=== PATIENT | female | born 1950 | race African-American/Black ===

== ENCOUNTER 2017-06-18 23:15 | Emergency (ER) | payer MEDICARE, OTHER ==
[~2017-06-18] VITALS: Ht 157.5 cm; Wt 86.4 kg
[~2017-06-18 23:15] MED LIST: AMLO5TAB66 PO; ARIP15TA2 PO; ASPI-1182 PO; DOCU250C91 PO; FURO40 PO; HYDR-3112 PO; HYDR-4061 PO; KDUR20 PO; LEVO100T14 PO; LOSA50TA37 PO; METO50 PO; NITR.4 SL; TOPI100T37 PO; [UNRECOGNIZED DRUG - CODE]
[2017-06-18 23:38] VITALS: BP 145/83
[2017-06-19] MEDS ORDERED: PERMETHRIN 5% 60 GM CREAM TP ONE
[2017-06-19] MEDS ORDERED: DiphenhydrAMINE HCL 25 MG CAPSULE PO ONE (00:15)
[2017-06-19 00:23] LABS: GLUCOSE,POINT OF CARE 168 MG/DL (70-110)
== END 2017-06-19 00:28 | disposition home or self-care (01) ==
LOC: EMS 23:16
DX: S90.562A Insect bite (nonvenomous), left ankle, initial encounter (principal); S90.561A Insect bite (nonvenomous), right ankle, initial encounter; S50.862A Insect bite (nonvenomous) of left forearm, initial encounter; S50.861A Insect bite (nonvenomous) of right forearm, initial encounter; S00.06XA Insect bite (nonvenomous) of scalp, initial encounter; E11.9 Type 2 diabetes mellitus without complications; E78.00 Pure hypercholesterolemia, unspecified; I10 Essential (primary) hypertension; Z91.041 Radiographic dye allergy status; Z88.0 Allergy status to penicillin; W57.XXXA Bitten or stung by nonvenomous insect and other nonvenomous arthropods, initial encounter; Y93.89 Activity, other specified; Y92.89 Other specified places as the place of occurrence of the external cause; Y99.8 Other external cause status
CPT/HCPCS: 82962; 99283

== ENCOUNTER → 2017-09-26 | Outpatient (CLI) | payer MEDICARE, OTHER ==
[2017-09-26 11:04] LABS: BASOPHILS % (AUTO) 0.5 % (0.0-2.0); EOSINOPHILS % (AUTO) 1.9 % (1.0-6.0); HEMATOCRIT 38.8 % (36-46); HEMOGLOBIN 12.5 g/dL (12.0-16.0); LYMPHOCYTES # (AUTO) 2.4 K/uL (1.0-4.8); LYMPHOCYTES % (AUTO) 26.2 % (22.0-44.0); MEAN CORPUSCULAR HEMOGLOBIN 28.3 pg (26.0-34.0); MEAN CORPUSCULAR HGB CONC 32.2 G/dL (31.0-37.0); MEAN CORPUSCULAR VOLUME 88 fL (80-100); MONOCYTES # (AUTO) 0.8 K/uL (0.1-1.0); MONOCYTES % (AUTO) 8.5 % (2.0-9.0); NEUTROPHILS # (AUTO) 5.7 K/uL (1.8-7.7); NEUTROPHILS % (AUTO) 62.9 % (40.0-70.0); PLATELET COUNT (AUTO) 376 K/uL (150-450); RED BLOOD CELL COUNT(AUTO) 4.41 MIL/uL (4.00-5.20); RED CELL DISTRIBUTION WIDTH 15.3 % (11.5-14.5)
[2017-09-26 11:33] LABS: HEMOGLOBIN A1C 9.1 % (4.5-6.2)
[2017-09-26 12:09] LABS: ALBUMIN 3.6 g/dL (3.4-5.0); BILIRUBIN,TOTAL 0.5 mg/dL (0.1-1.0); CALCIUM, TOTAL 8.7 mg/dL (8.8-10.5); CHOL/HDL RATIO 1.9 (3.9-5.7); CREATININE 1.18 mg/dL (0.60-1.30); FREE T4 (FREE THYROXINE) 0.92 ng/dL (0.76-1.46); MAGNESIUM 1.3 mg/dL (1.80-2.40); POTASSIUM 4.1 mmol/L (3.5-5.1); THYROID STIMULATING HORMONE 3.05 uIU/mL (0.36-3.74); TOTAL PROTEIN, SERUM 7.5 g/dL (6.4-8.2)
== END | disposition home or self-care (01) ==
LOC: LABPV 08:59
PROVIDERS: ATTEND Internal Medicine Cardiovascular Disease
DX: I11.0 Hypertensive heart disease with heart failure (principal); I50.9 Heart failure, unspecified; E11.8 Type 2 diabetes mellitus with unspecified complications; E55.9 Vitamin D deficiency, unspecified; D56.5 Hemoglobin E-beta thalassemia
CPT/HCPCS: 82306; 83036; 83735; 84439; 84443

== ENCOUNTER 2017-12-06 17:47 | Emergency (ER) | payer MEDICARE, OTHER ==
[~2017-12-06] VITALS: Ht 157.5 cm; Wt 90.9 kg
[2017-12-06 18:08] LABS: GLUCOSE,POINT OF CARE 120 MG/DL (70-110)
[2017-12-06 22:03] LABS: BASOPHILS % (AUTO) 0.9 % (0.0-2.0); EOSINOPHILS % (AUTO) 2.3 % (1.0-6.0); HEMATOCRIT 40.1 % (36-46); LYMPHOCYTES # (AUTO) 2.6 K/uL (1.0-4.8); LYMPHOCYTES % (AUTO) 29.5 % (22.0-44.0); MEAN CORPUSCULAR HEMOGLOBIN 28.3 pg (26.0-34.0); MEAN CORPUSCULAR HGB CONC 32.5 G/dL (31.0-37.0); MEAN CORPUSCULAR VOLUME 87 fL (80-100); MONOCYTES # (AUTO) 0.8 K/uL (0.1-1.0); MONOCYTES % (AUTO) 8.9 % (2.0-9.0); NEUTROPHILS # (AUTO) 5.2 K/uL (1.8-7.7); NEUTROPHILS % (AUTO) 58.4 % (40.0-70.0); PLATELET COUNT (AUTO) 319 K/uL (150-450); RED BLOOD CELL COUNT(AUTO) 4.61 MIL/uL (4.00-5.20); RED CELL DISTRIBUTION WIDTH 15.4 % (11.5-14.5)
[2017-12-06 22:12] LABS: ANION GAP 8 mmol/L (8-16); CALCIUM, TOTAL 9.3 mg/dL (8.8-10.5); CARBON DIOXIDE 29 mmol/L (22-29); CHLORIDE 102 mmol/L (98-107); CREATININE 0.95 mg/dL (0.60-1.30); GLOMERULAR FILTR. RATE CALC > 60 mL/min (>60); GLUCOSE,RANDOM 198 mg/dL (70-110); POTASSIUM 3.9 mmol/L (3.5-5.1); SODIUM SERUM 139 mmol/L (136-145); UREA NITROGEN, BLOOD 20 mg/dL (7-18)
[2017-12-06 22:14] LABS: AMPHET/METH SCREEN,URINE NEGATIVE (NEGATIVE); BARBITURATE SCREEN, URINE NEGATIVE (NEGATIVE); BENZODIAZEPINES SCREEN,URINE NEGATIVE (NEGATIVE); CANNABINOID SCREEN,URINE NEGATIVE (NEGATIVE); COCAINE SCREEN,URINE NEGATIVE (NEGATIVE); METHADONE SCREEN, URINE NEGATIVE (NEGATIVE); OPIATE SCREEN,URINE NEGATIVE (NEGATIVE); PHENCYCLIDINE SCREEN,URINE NEGATIVE (NEGATIVE)
[2017-12-06 22:17] LABS: ALANINE AMINOTRANSFERASE 46 U/L (12-78); ALBUMIN 3.7 g/dL (3.4-5.0); ALKALINE PHOSPHATASE 100 U/L (46-116); ASPARTATE AMINOTRANSFERASE 37 U/L (15-37); BILIRUBIN,TOTAL 0.4 mg/dL (0.1-1.0); TOTAL PROTEIN, SERUM 7.6 g/dL (6.4-8.2)
[2017-12-06 23:38] VITALS: BP 145/68
== END 2017-12-07 00:29 | disposition home or self-care (01) ==
LOC: EMS 17:51 → EEVIPCON 17:51 → EMS 12-07 00:29
DX: F32.9 Major depressive disorder, single episode, unspecified (principal); G47.00 Insomnia, unspecified; F20.9 Schizophrenia, unspecified; E11.9 Type 2 diabetes mellitus without complications; I10 Essential (primary) hypertension; E78.00 Pure hypercholesterolemia, unspecified; Z88.0 Allergy status to penicillin; Z88.8 Allergy status to other drugs, medicaments and biological substances
CPT/HCPCS: 36415; 80053; 80307; 82962; 85025; 93005; 99285; G0480

== ENCOUNTER → 2018-02-08 | Outpatient (CLI) | payer MEDICARE, OTHER ==
[2018-02-08 11:53] LABS: BASOPHILS % (AUTO) 0.8 % (0.0-2.0); EOSINOPHILS % (AUTO) 1.4 % (1.0-6.0); HEMATOCRIT 41.8 % (36-46); HEMOGLOBIN 13.5 g/dL (12.0-16.0); LYMPHOCYTES % (AUTO) 24.5 % (22.0-44.0); MEAN CORPUSCULAR HEMOGLOBIN 28.6 pg (26.0-34.0); MEAN CORPUSCULAR HGB CONC 32.4 G/dL (31.0-37.0); MEAN CORPUSCULAR VOLUME 88 fL (80-100); MONOCYTES # (AUTO) 0.6 K/uL (0.1-1.0); MONOCYTES % (AUTO) 7.2 % (2.0-9.0); NEUTROPHILS # (AUTO) 5.4 K/uL (1.8-7.7); NEUTROPHILS % (AUTO) 66.1 % (40.0-70.0); PLATELET COUNT (AUTO) 325 K/uL (150-450); RED BLOOD CELL COUNT(AUTO) 4.74 MIL/uL (4.00-5.20); RED CELL DISTRIBUTION WIDTH 15.7 % (11.5-14.5)
[2018-02-08 12:15] LABS: ALBUMIN 3.7 g/dL (3.4-5.0); BILIRUBIN,TOTAL 0.3 mg/dL (0.1-1.0); CALCIUM, TOTAL 8.3 mg/dL (8.8-10.5); CREATININE 1.17 mg/dL (0.60-1.30); FREE T4 (FREE THYROXINE) 0.62 ng/dL (0.76-1.46); MAGNESIUM 1.8 mg/dL (1.80-2.40); POTASSIUM 4.5 mmol/L (3.5-5.1); THYROID STIMULATING HORMONE 6.52 uIU/mL (0.36-3.74); TOTAL PROTEIN, SERUM 7.6 g/dL (6.4-8.2)
[2018-02-08 12:47] LABS: HEMOGLOBIN A1C 7.5 % (4.5-6.2)
== END | disposition home or self-care (01) ==
LOC: LABPV 09:09
PROVIDERS: ATTEND Internal Medicine Cardiovascular Disease
DX: I11.0 Hypertensive heart disease with heart failure (principal); I50.9 Heart failure, unspecified; E11.8 Type 2 diabetes mellitus with unspecified complications; E55.9 Vitamin D deficiency, unspecified; D56.5 Hemoglobin E-beta thalassemia
CPT/HCPCS: 82306; 83036; 83735; 84439; 84443

== ENCOUNTER → 2018-05-08 | Outpatient (CLI) | payer MEDICARE, OTHER | END | disposition home or self-care (01) | LOC: RADPV 12:15 | PROVIDERS: ATTEND Psychiatry & Neurology Neurology | DX: M47.897 Other spondylosis, lumbosacral region (principal); M25.551 Pain in right hip; I10 Essential (primary) hypertension; E11.9 Type 2 diabetes mellitus without complications | CPT/HCPCS: 72100; 73502 ==

== ENCOUNTER → 2018-05-08 | Outpatient (CLI) | payer MEDICARE, OTHER ==
[2018-05-08 11:02] LABS: ALBUMIN 3.8 g/dL (3.4-5.0); BILIRUBIN,TOTAL 0.5 mg/dL (0.1-1.0); CALCIUM, TOTAL 9.1 mg/dL (8.8-10.5); CHOL/HDL RATIO 3.4 (3.9-5.7); CREATININE 1.3 mg/dL (0.60-1.30); FREE T4 (FREE THYROXINE) 0.7 ng/dL (0.76-1.46); POTASSIUM 4.3 mmol/L (3.5-5.1); THYROID STIMULATING HORMONE 8.99 uIU/mL (0.36-3.74); TOTAL PROTEIN, SERUM 7.6 g/dL (6.4-8.2)
== END | disposition home or self-care (01) ==
LOC: LABPV 07:08
PROVIDERS: ATTEND Internal Medicine Cardiovascular Disease
DX: I11.0 Hypertensive heart disease with heart failure (principal); I50.9 Heart failure, unspecified; E11.8 Type 2 diabetes mellitus with unspecified complications; E55.9 Vitamin D deficiency, unspecified; D56.5 Hemoglobin E-beta thalassemia
CPT/HCPCS: 84439; 84443

== ENCOUNTER → 2018-05-09 | Outpatient (CLI) | payer MEDICARE, OTHER | END | disposition home or self-care (01) | LOC: LABMN 12:00 | PROVIDERS: ATTEND Psychiatry & Neurology Psychiatry | DX: F20.9 Schizophrenia, unspecified (principal) | CPT/HCPCS: 80173 ==

== ENCOUNTER 2018-05-29 11:17 | Emergency (ER) | payer MEDICARE, OTHER ==
[~2018-05-29] VITALS: Ht 170.2 cm; Wt 90.9 kg
[~2018-05-29 11:17] MED LIST changes: +ALLO100T PO; -ARIP15TA2 PO; +CARV6 PO; +CLOP75 PO; -DOCU250C91 PO; -FURO40 PO; -HYDR-3112 PO; -HYDR-4061 PO; -KDUR20 PO; +LOSA50TA25 PO; -LOSA50TA37 PO; +METF-960 PO; -METO50 PO; -NITR.4 SL; +PIOG15TA6 PO; +ROSU10 PO; -TOPI100T37 PO; +TRIA1TAB93 PO; +VALS80TA2 PO; -[UNRECOGNIZED DRUG - CODE]
[2018-05-29] MEDS ORDERED: TRAZ-219 PO (12:04)
[2018-05-29 16:33] LABS: BASOPHILS % (AUTO) 1.1 % (0.0-2.0); EOSINOPHILS % (AUTO) 2.6 % (1.0-6.0); HEMATOCRIT 43.5 % (36-46); HEMOGLOBIN 13.9 g/dL (12.0-16.0); LYMPHOCYTES # (AUTO) 2.9 K/uL (1.0-4.8); LYMPHOCYTES % (AUTO) 25.4 % (22.0-44.0); MEAN CORPUSCULAR HEMOGLOBIN 28.4 pg (26.0-34.0); MEAN CORPUSCULAR VOLUME 89 fL (80-100); MONOCYTES # (AUTO) 0.8 K/uL (0.1-1.0); MONOCYTES % (AUTO) 7.1 % (2.0-9.0); NEUTROPHILS # (AUTO) 7.2 K/uL (1.8-7.7); NEUTROPHILS % (AUTO) 63.8 % (40.0-70.0); PLATELET COUNT (AUTO) 355 K/uL (150-450); RED CELL DISTRIBUTION WIDTH 15.3 % (11.5-14.5)
[2018-05-29 16:49] LABS: CALCIUM, TOTAL 9.9 mg/dL (8.8-10.5); CREATININE 1.16 mg/dL (0.60-1.30); POTASSIUM 5.1 mmol/L (3.5-5.1)
[2018-05-29 17:16] LABS: BILIRUBIN,TOTAL 0.4 mg/dL (0.1-1.0); TOTAL PROTEIN, SERUM 8.5 g/dL (6.4-8.2)
[2018-05-29 18:26] LABS: APPEARANCE,URINE CLEAR (CLEAR); BILIRUBIN,URINE NEGATIVE (NEGATIVE); GLUCOSE, URINE (UA) NEGATIVE (NEGATIVE); KETONES,URINE NEGATIVE (NEGATIVE); LEUKOCYTE ESTERASE ,URINE NEGATIVE (NEGATIVE); NITRATE,URINE NEGATIVE (NEGATIVE); OCCULT BLOOD,URINE NEGATIVE (NEGATIVE); PROTEIN,URINE NEGATIVE (NEGATIVE); UROBILINOGEN,URINE 0.2 mg/dL (<=1.0)
[2018-05-29 19:08] VITALS: BP 134/76
== END 2018-05-29 19:16 | disposition home or self-care (01) ==
LOC: EMS 11:18
DX: M79.661 Pain in right lower leg (principal); M79.662 Pain in left lower leg; F41.9 Anxiety disorder, unspecified; F32.9 Major depressive disorder, single episode, unspecified; E11.9 Type 2 diabetes mellitus without complications; E78.00 Pure hypercholesterolemia, unspecified; I10 Essential (primary) hypertension; F20.9 Schizophrenia, unspecified; Z90.49 Acquired absence of other specified parts of digestive tract; Z88.0 Allergy status to penicillin; Z91.040 Latex allergy status; Z79.01 Long term (current) use of anticoagulants; Z79.82 Long term (current) use of aspirin; Z79.84 Long term (current) use of oral hypoglycemic drugs; Z79.899 Other long term (current) drug therapy
CPT/HCPCS: 82948; 99284

== ENCOUNTER 2018-05-29 23:02 | Emergency (ER) | payer MEDICARE, OTHER ==
[~2018-05-29] VITALS: Ht 157.5 cm; Wt 90.9 kg
[~2018-05-29 23:02] MED LIST changes: +TRAZ-219 PO
[2018-05-30 05:30] VITALS: BP 116/76
[2018-05-31] MEDS ORDERED: EMPA25TA PO (21:25)
[2018-05-31] MEDS ORDERED: METF-960 PO (21:34)
== END 2018-05-30 07:05 | disposition home or self-care (01) ==
LOC: EMS 23:02
DX: R44.0 Auditory hallucinations (principal); R07.89 Other chest pain; F41.9 Anxiety disorder, unspecified; F32.9 Major depressive disorder, single episode, unspecified; E11.9 Type 2 diabetes mellitus without complications; E78.00 Pure hypercholesterolemia, unspecified; I10 Essential (primary) hypertension; F20.9 Schizophrenia, unspecified; Z59.0 Homelessness; Z90.49 Acquired absence of other specified parts of digestive tract; Z88.0 Allergy status to penicillin; Z88.8 Allergy status to other drugs, medicaments and biological substances; Z79.84 Long term (current) use of oral hypoglycemic drugs; Z79.82 Long term (current) use of aspirin
CPT/HCPCS: 93005; 99284

== ENCOUNTER 2018-05-31 11:34 | Inpatient (IN) | payer MEDICARE, OTHER ==
[~2018-05-31] VITALS: Ht 162.6 cm; Wt 91.5 kg
[2018-05-31 12:04] LABS: GLUCOSE,POINT OF CARE 175 MG/DL (70-110)
[2018-05-31 12:25] LABS: BASOPHILS % (AUTO) 1.3 % (0.0-2.0); EOSINOPHILS % (AUTO) 1.6 % (1.0-6.0); HEMATOCRIT 41.1 % (36-46); HEMOGLOBIN 13.1 g/dL (12.0-16.0); LYMPHOCYTES # (AUTO) 2.6 K/uL (1.0-4.8); LYMPHOCYTES % (AUTO) 22.3 % (22.0-44.0); MEAN CORPUSCULAR HEMOGLOBIN 28.6 pg (26.0-34.0); MEAN CORPUSCULAR VOLUME 90 fL (80-100); MONOCYTES # (AUTO) 0.9 K/uL (0.1-1.0); NEUTROPHILS # (AUTO) 7.8 K/uL (1.8-7.7); NEUTROPHILS % (AUTO) 66.8 % (40.0-70.0); PLATELET COUNT (AUTO) 336 K/uL (150-450); RED BLOOD CELL COUNT(AUTO) 4.59 MIL/uL (4.00-5.20); RED CELL DISTRIBUTION WIDTH 15.1 % (11.5-14.5)
[2018-05-31 12:34] LABS: CALCIUM, TOTAL 9.1 mg/dL (8.8-10.5); CREATININE 2.17 mg/dL (0.60-1.30); POTASSIUM 4.7 mmol/L (3.5-5.1)
[2018-05-31 12:36] LABS: APPEARANCE,URINE CLOUDY (CLEAR); GLUCOSE, URINE (UA) >=1000 mg/dL (NEGATIVE); KETONES,URINE TRACE mg/dL (NEGATIVE); LEUKOCYTE ESTERASE ,URINE SMALL (NEGATIVE); NITRATE,URINE NEGATIVE (NEGATIVE); OCCULT BLOOD,URINE NEGATIVE (NEGATIVE); PROTEIN,URINE NEGATIVE (NEGATIVE); UROBILINOGEN,URINE 0.2 mg/dL (<=1.0)
[2018-05-31 12:40] LABS: BILIRUBIN,URINE PRELIM. POSITIVE (NEGATIVE)
[2018-05-31 12:45] LABS: RBC,URINE None Seen /HPF (0-2)
[2018-05-31 12:46] LABS: BACTERIA,URINE Few /HPF (None Seen); SQUAMOUS EPITHELIAL CELL,UR Moderate /LPF (None Seen)
[2018-05-31 12:52] LABS: D-DIMER 0.22 mg/L FEU (0.00-0.50)
[2018-05-31 12:58] LABS: ALBUMIN 3.6 g/dL (3.4-5.0); BILIRUBIN,TOTAL 0.3 mg/dL (0.1-1.0); TOTAL PROTEIN, SERUM 7.4 g/dL (6.4-8.2)
[2018-05-31] MEDS ORDERED: 0.9% SODIUM CHLORIDE 10 ML SYRINGE IVP PRN (14:00)
[2018-05-31] MEDS ORDERED: ACETAMINOPHEN 325 MG TABLET PO PRN (14:00)
[2018-05-31] MEDS ORDERED: ONDANSETRON HCL 4 MG/2 ML VIAL IVP PRN ×2 (14:00→20:45)
[2018-05-31 16:44] LABS: GLUCOSE,POINT OF CARE 113 MG/DL (70-110)
[2018-05-31 17:03] VITALS: BP 152/71
[2018-05-31 19:13] VITALS: BP 119/60
[2018-05-31] MEDS ORDERED: IPRATROPIUM BROMIDE 0.5 MG/2.5 ML NEB SOLUTION NEB PRN (20:45)
[2018-05-31] MEDS ORDERED: ZOLPIDEM TARTRATE 5 MG TABLET PO PRN (20:45)
[2018-05-31] MEDS ORDERED: HYDROCODONE/ACETAMINOPHEN 5-325 MG TABLET PO PRN (20:45)
[2018-05-31] MEDS ORDERED: BISACODYL 10 MG RECTAL RECTAL SUPPOSITORY PR PRN (20:45)
[2018-05-31] MEDS ORDERED: MAGNESIUM HYDROXIDE SUSPENSION 30 ML UDCUP PO PRN (20:45)
[2018-05-31] MEDS ORDERED: ALBUTEROL SULFATE 2.5 MG/0.5 ML NEB SOLUTION NEB PRN (20:45)
[2018-05-31] MEDS: SODIUM CHLORIDE 0.45% 1,000 ML IV SCH (21:00)
[2018-05-31] MEDS: DOCUSATE SODIUM 100 MG CAPSULE PO SCH (21:00)
[2018-05-31] MEDS ORDERED: EMPA25TA PO (21:25)
[2018-05-31] MEDS ORDERED: METF-960 PO (21:34)
[2018-05-31] MEDS: CARVEDILOL 6.25 MG TABLET PO SCH (22:45)
[2018-05-31] MEDS: TraZODone HCL 50 MG TABLET PO SCH (22:45)
[2018-05-31] MEDS: HEPARIN SODIUM,PORCINE 5,000 UNITS/ML VIAL SQ SCH (23:06)
[2018-06-01 04:52] VITALS: BP 158/96
[2018-06-01] MEDS: LEVOTHYROXINE SODIUM 50 MCG TABLET PO SCH (06:19)
[2018-06-01 07:27] VITALS: BP 140/73
[2018-06-01] MEDS: MetFORMIN HCL 500 MG TABLET PO SCH ×2 (08:00→18:00)
[2018-06-01] MEDS: HEPARIN SODIUM,PORCINE 5,000 UNITS/ML VIAL SQ SCH ×2 (08:00→16:00)
[2018-06-01 08:19] LABS: BASOPHILS % (AUTO) 1.3 % (0.0-2.0); EOSINOPHILS % (AUTO) 2.7 % (1.0-6.0); HEMATOCRIT 42.4 % (36-46); HEMOGLOBIN 13.8 g/dL (12.0-16.0); LYMPHOCYTES # (AUTO) 2.5 K/uL (1.0-4.8); LYMPHOCYTES % (AUTO) 29.1 % (22.0-44.0); MEAN CORPUSCULAR HEMOGLOBIN 28.8 pg (26.0-34.0); MEAN CORPUSCULAR HGB CONC 32.6 G/dL (31.0-37.0); MEAN CORPUSCULAR VOLUME 89 fL (80-100); MONOCYTES # (AUTO) 0.8 K/uL (0.1-1.0); MONOCYTES % (AUTO) 8.9 % (2.0-9.0); PLATELET COUNT (AUTO) 340 K/uL (150-450); RED BLOOD CELL COUNT(AUTO) 4.79 MIL/uL (4.00-5.20)
[2018-06-01 08:32] LABS: ALBUMIN 3.6 g/dL (3.4-5.0); BILIRUBIN,TOTAL 0.5 mg/dL (0.1-1.0); CALCIUM, TOTAL 9.1 mg/dL (8.8-10.5); CREATININE 1.38 mg/dL (0.60-1.30); POTASSIUM 4.3 mmol/L (3.5-5.1); TOTAL PROTEIN, SERUM 7.3 g/dL (6.4-8.2)
[2018-06-01] MEDS: DOCUSATE SODIUM 100 MG CAPSULE PO SCH ×2 (08:48→21:00)
[2018-06-01] MEDS: LOSARTAN POTASSIUM 50 MG TABLET PO SCH (08:48)
[2018-06-01] MEDS: CARVEDILOL 6.25 MG TABLET PO SCH ×2 (08:48→21:00)
[2018-06-01] MEDS: PIOGLITAZONE HCL 15 MG TABLET PO SCH (08:48)
[2018-06-01] MEDS: PANTOPRAZOLE SODIUM 40 MG/VIAL IVP SCH (08:48)
[2018-06-01] MEDS: ALLOPURINOL 100 MG TABLET PO SCH (08:49)
[2018-06-01] MEDS: AmLODIPine BESYLATE 5 MG TABLET PO SCH (08:49)
[2018-06-01] MEDS: SODIUM CHLORIDE 0.45% 1,000 ML IV SCH ×2 (10:20→23:40)
[2018-06-01 11:17] VITALS: BP 134/75
[2018-06-01 15:35] VITALS: BP 153/73
[2018-06-01] MEDS ORDERED: HALOPERIDOL 5 MG TABLET PO PRN (17:30)
[2018-06-01] MEDS: TraZODone HCL 50 MG TABLET PO SCH (21:00)
[2018-06-01] MEDS: HALOPERIDOL 10 MG TABLET PO SCH (21:00)
[2018-06-01 21:09] VITALS: BP 118/74
[2018-06-02] VITALS (7 sets, daily range): BP systolic 105–153; BP diastolic 53–92
[2018-06-02] MEDS: LEVOTHYROXINE SODIUM 50 MCG TABLET PO SCH (05:50)
[2018-06-02] MEDS: ACETAMINOPHEN 325 MG TABLET PO PRN ×2 (05:50→20:33)
[2018-06-02] MEDS: SODIUM CHLORIDE 0.45% 1,000 ML IV SCH (06:47)
[2018-06-02] MEDS: MetFORMIN HCL 850 MG TABLET PO SCH ×2 (08:05→17:01)
[2018-06-02] MEDS: PANTOPRAZOLE SODIUM 40 MG/VIAL IVP SCH (08:08)
[2018-06-02] MEDS: HEPARIN SODIUM,PORCINE 5,000 UNITS/ML VIAL SQ SCH ×3 (08:11→16:58)
[2018-06-02] MEDS: DOCUSATE SODIUM 100 MG CAPSULE PO SCH ×2 (08:12→20:33)
[2018-06-02] MEDS: LOSARTAN POTASSIUM 50 MG TABLET PO SCH (08:12)
[2018-06-02] MEDS: AmLODIPine BESYLATE 5 MG TABLET PO SCH (08:12)
[2018-06-02] MEDS: CARVEDILOL 6.25 MG TABLET PO SCH ×2 (08:13→20:33)
[2018-06-02] MEDS: ALLOPURINOL 100 MG TABLET PO SCH (08:15)
[2018-06-02] MEDS: PIOGLITAZONE HCL 15 MG TABLET PO SCH (09:00)
[2018-06-02] MEDS: MORPHINE SULFATE 2 MG/ML SYRINGE IVP PRN (11:03)
[2018-06-02 15:39] LABS: GLUCOMETER DEV NAME(LOC) PV 4E2; GLUCOSE,POINT OF CARE 166 MG/DL (70-110)
[2018-06-02 16:04] LABS: BASOPHILS % (AUTO) 1.4 % (0.0-2.0); EOSINOPHILS % (AUTO) 2.5 % (1.0-6.0); HEMATOCRIT 41.1 % (36-46); HEMOGLOBIN 13.3 g/dL (12.0-16.0); LYMPHOCYTES # (AUTO) 3.2 K/uL (1.0-4.8); LYMPHOCYTES % (AUTO) 30.4 % (22.0-44.0); MEAN CORPUSCULAR HEMOGLOBIN 28.2 pg (26.0-34.0); MEAN CORPUSCULAR HGB CONC 32.4 G/dL (31.0-37.0); MEAN CORPUSCULAR VOLUME 87 fL (80-100); MONOCYTES # (AUTO) 0.9 K/uL (0.1-1.0); MONOCYTES % (AUTO) 8.8 % (2.0-9.0); NEUTROPHILS # (AUTO) 5.9 K/uL (1.8-7.7); NEUTROPHILS % (AUTO) 56.9 % (40.0-70.0); PLATELET COUNT (AUTO) 362 K/uL (150-450); RED BLOOD CELL COUNT(AUTO) 4.71 MIL/uL (4.00-5.20)
[2018-06-02 16:12] LABS: CREATININE 1.36 mg/dL (0.60-1.30); POTASSIUM 3.8 mmol/L (3.5-5.1)
[2018-06-02 16:20] LABS: ALBUMIN 3.4 g/dL (3.4-5.0); BILIRUBIN,TOTAL 0.5 mg/dL (0.1-1.0); TOTAL PROTEIN, SERUM 7.2 g/dL (6.4-8.2)
[2018-06-02] MEDS: TraZODone HCL 50 MG TABLET PO SCH (20:32)
[2018-06-02] MEDS: HALOPERIDOL 10 MG TABLET PO SCH (20:38)
[2018-06-02 22:43] LABS: GLUCOMETER DEV NAME(LOC) 6N 1E; GLUCOSE,POINT OF CARE 127 MG/DL (70-110)
[2018-06-02 22:44] LABS: GLUCOMETER DEV NAME(LOC) 6N 1E; GLUCOSE,POINT OF CARE 177 MG/DL (70-110)
[2018-06-03] MEDS: MORPHINE SULFATE 2 MG/ML SYRINGE IVP PRN
[2018-06-03] MEDS: HEPARIN SODIUM,PORCINE 5,000 UNITS/ML VIAL SQ SCH ×3 (00:03→16:00)
[2018-06-03] MEDS: SODIUM CHLORIDE 0.45% 1,000 ML IV SCH ×2 (01:46→16:27)
[2018-06-03 04:35] VITALS: BP 117/60
[2018-06-03] MEDS: LEVOTHYROXINE SODIUM 50 MCG TABLET PO SCH (06:46)
[2018-06-03 07:13] LABS: GLUCOMETER DEV NAME(LOC) 6N 1E; GLUCOSE,POINT OF CARE 166 MG/DL (70-110)
[2018-06-03 07:23] VITALS: BP 152/83
[2018-06-03] MEDS: MetFORMIN HCL 850 MG TABLET PO SCH ×2 (08:05→17:48)
[2018-06-03] MEDS: PIOGLITAZONE HCL 15 MG TABLET PO SCH (08:05)
[2018-06-03] MEDS: ALLOPURINOL 100 MG TABLET PO SCH (08:05)
[2018-06-03] MEDS: CARVEDILOL 6.25 MG TABLET PO SCH ×2 (08:05→19:56)
[2018-06-03] MEDS: AmLODIPine BESYLATE 5 MG TABLET PO SCH (08:05)
[2018-06-03] MEDS: DOCUSATE SODIUM 100 MG CAPSULE PO SCH ×2 (08:05→19:56)
[2018-06-03] MEDS: PANTOPRAZOLE SODIUM 40 MG/VIAL IVP SCH (08:07)
[2018-06-03] MEDS: LOSARTAN POTASSIUM 50 MG TABLET PO SCH (08:13)
[2018-06-03 11:10] VITALS: BP 134/75
[2018-06-03 15:03] VITALS: BP 124/74
[2018-06-03] MEDS: TraZODone HCL 50 MG TABLET PO SCH (19:56)
[2018-06-03] MEDS: HALOPERIDOL 10 MG TABLET PO SCH (19:56)
[2018-06-03 20:07] VITALS: BP 146/73
[2018-06-03 21:20] LABS: GLUCOMETER DEV NAME(LOC) 6N 2D; GLUCOSE,POINT OF CARE 145 MG/DL (70-110)
[2018-06-03 23:50] VITALS: BP 140/96
[2018-06-04 04:17] VITALS: BP 146/62
[2018-06-04] MEDS: LEVOTHYROXINE SODIUM 50 MCG TABLET PO SCH (05:33)
[2018-06-04] MEDS: SODIUM CHLORIDE 0.45% 1,000 ML IV SCH ×2 (05:33→20:47)
[2018-06-04 07:44] VITALS: BP 147/91
[2018-06-04] MEDS: MetFORMIN HCL 850 MG TABLET PO SCH ×3 (08:00→17:55)
[2018-06-04] MEDS: CARVEDILOL 6.25 MG TABLET PO SCH ×3 (09:00→20:48)
[2018-06-04] MEDS: DOCUSATE SODIUM 100 MG CAPSULE PO SCH ×3 (09:00→20:46)
[2018-06-04] MEDS: LOSARTAN POTASSIUM 50 MG TABLET PO SCH ×2 (09:00→09:05)
[2018-06-04] MEDS: ALLOPURINOL 100 MG TABLET PO SCH ×2 (09:00→09:03)
[2018-06-04] MEDS: AmLODIPine BESYLATE 5 MG TABLET PO SCH ×2 (09:00→09:05)
[2018-06-04] MEDS: PIOGLITAZONE HCL 15 MG TABLET PO SCH ×2 (09:00→09:03)
[2018-06-04] MEDS: HEPARIN SODIUM,PORCINE 5,000 UNITS/ML VIAL SQ SCH ×4 (09:02→23:17)
[2018-06-04] MEDS: PANTOPRAZOLE SODIUM 40 MG/VIAL IVP SCH (09:03)
[2018-06-04 11:52] VITALS: BP 109/79
[2018-06-04 15:39] VITALS: BP 139/82
[2018-06-04 19:57] VITALS: BP 152/77
[2018-06-04 20:04] LABS: GLUCOMETER DEV NAME(LOC) 6N 2D; GLUCOSE,POINT OF CARE 125 MG/DL (70-110)
[2018-06-04] MEDS: TraZODone HCL 50 MG TABLET PO SCH (20:47)
[2018-06-04] MEDS: HALOPERIDOL 10 MG TABLET PO SCH (20:49)
[2018-06-04] MEDS: MORPHINE SULFATE 2 MG/ML SYRINGE IVP PRN (23:21)
[2018-06-04 23:22] VITALS: BP 130/58
[2018-06-05 00:35] LABS: GLUCOMETER DEV NAME(LOC) 6N 1E; GLUCOSE,POINT OF CARE 130 MG/DL (70-110)
[2018-06-05 04:24] VITALS: BP 134/85
[2018-06-05] MEDS: LEVOTHYROXINE SODIUM 50 MCG TABLET PO SCH (06:54)
[2018-06-05 07:41] VITALS: BP 150/86
[2018-06-05 07:49] LABS: GLUCOMETER DEV NAME(LOC) 6N 1E; GLUCOSE,POINT OF CARE 120 MG/DL (70-110)
[2018-06-05] MEDS: LOSARTAN POTASSIUM 50 MG TABLET PO SCH (08:05)
[2018-06-05] MEDS: PIOGLITAZONE HCL 15 MG TABLET PO SCH (08:05)
[2018-06-05] MEDS: MetFORMIN HCL 850 MG TABLET PO SCH ×2 (08:05→17:59)
[2018-06-05] MEDS: DOCUSATE SODIUM 100 MG CAPSULE PO SCH ×2 (08:06→21:17)
[2018-06-05] MEDS: AmLODIPine BESYLATE 5 MG TABLET PO SCH (08:06)
[2018-06-05] MEDS: PANTOPRAZOLE SODIUM 40 MG/VIAL IVP SCH (08:06)
[2018-06-05] MEDS: ALLOPURINOL 100 MG TABLET PO SCH (08:06)
[2018-06-05] MEDS: CARVEDILOL 6.25 MG TABLET PO SCH ×2 (08:06→21:17)
[2018-06-05] MEDS: HEPARIN SODIUM,PORCINE 5,000 UNITS/ML VIAL SQ SCH ×2 (08:07→17:59)
[2018-06-05] MEDS: SODIUM CHLORIDE 0.45% 1,000 ML IV SCH (08:50)
[2018-06-05 11:23] VITALS: BP 157/82
[2018-06-05 16:48] VITALS: BP 150/80
[2018-06-05 20:24] VITALS: BP 146/88
[2018-06-05] MEDS: HALOPERIDOL 10 MG TABLET PO SCH (21:17)
[2018-06-05] MEDS: TraZODone HCL 50 MG TABLET PO SCH (21:17)
[2018-06-05 23:30] VITALS: BP 148/82
[2018-06-05 23:34] LABS: GLUCOMETER DEV NAME(LOC) 6N 1E; GLUCOSE,POINT OF CARE 110 MG/DL (70-110)
[2018-06-06] MEDS: HEPARIN SODIUM,PORCINE 5,000 UNITS/ML VIAL SQ SCH ×2 (00:51→08:32)
[2018-06-06] MEDS: ACETAMINOPHEN 325 MG TABLET PO PRN (01:02)
[2018-06-06 03:30] VITALS: BP 147/85
[2018-06-06] MEDS: LEVOTHYROXINE SODIUM 50 MCG TABLET PO SCH (05:33)
[2018-06-06] MEDS: SODIUM CHLORIDE 0.45% 1,000 ML IV SCH (05:33)
[2018-06-06 06:45] LABS: GLUCOMETER DEV NAME(LOC) 6N 2D; GLUCOSE,POINT OF CARE 100 MG/DL (70-110)
[2018-06-06 06:45] LABS: GLUCOMETER DEV NAME(LOC) 6N 2D; GLUCOSE,POINT OF CARE 113 MG/DL (70-110)
[2018-06-06 07:30] VITALS: BP 142/82
[2018-06-06] MEDS: PANTOPRAZOLE SODIUM 40 MG/VIAL IVP SCH (08:32)
[2018-06-06] MEDS: CARVEDILOL 6.25 MG TABLET PO SCH (08:33)
[2018-06-06] MEDS: AmLODIPine BESYLATE 5 MG TABLET PO SCH (08:33)
[2018-06-06] MEDS: DOCUSATE SODIUM 100 MG CAPSULE PO SCH (08:33)
[2018-06-06] MEDS: ALLOPURINOL 100 MG TABLET PO SCH (08:33)
[2018-06-06] MEDS: PIOGLITAZONE HCL 15 MG TABLET PO SCH (08:33)
[2018-06-06] MEDS: MetFORMIN HCL 850 MG TABLET PO SCH (08:33)
[2018-06-06] MEDS: LOSARTAN POTASSIUM 50 MG TABLET PO SCH (08:33)
[2018-06-06 11:27] VITALS: BP 140/78
[2018-06-06] MEDS ORDERED: LEVO50 PO (11:38)
[2018-06-06] MEDS ORDERED: METF-445 PO (11:38)
[2018-06-06 15:20] VITALS: BP 138/80
[2018-06-06] MEDS ORDERED: LOSARTAN POTASSIUM 50 MG TABLET PO SCH (21:00)
== END 2018-06-06 16:20 | DRG 683 ==
LOC: EMS 11:36 → 5N 15:51 → 4E 06-01 20:10 → 6N 06-02 15:30
PROVIDERS: ADMIT Hospitalist; ATTEND Hospitalist
DX: N17.0 Acute kidney failure with tubular necrosis (principal); F20.0 Paranoid schizophrenia; E03.9 Hypothyroidism, unspecified; E11.9 Type 2 diabetes mellitus without complications; E78.00 Pure hypercholesterolemia, unspecified; E78.5 Hyperlipidemia, unspecified; E66.9 Obesity, unspecified; F32.9 Major depressive disorder, single episode, unspecified; F41.9 Anxiety disorder, unspecified; I10 Essential (primary) hypertension; I25.10 Atherosclerotic heart disease of native coronary artery without angina pectoris; Z81.8 Family history of other mental and behavioral disorders; Z82.49 Family history of ischemic heart disease and other diseases of the circulatory system; Z83.3 Family history of diabetes mellitus; Z90.710 Acquired absence of both cervix and uterus; Z91.19 Patient's noncompliance with other medical treatment and regimen; Z95.0 Presence of cardiac pacemaker; Z68.34 Body mass index [BMI] 34.0-34.9, adult; Z88.0 Allergy status to penicillin; Z91.041 Radiographic dye allergy status; Z79.899 Other long term (current) drug therapy; Z88.5 Allergy status to narcotic agent; Z91.040 Latex allergy status; Z86.73 Personal history of transient ischemic attack (TIA), and cerebral infarction without residual deficits
CPT/HCPCS: 76770; 80173; 82948; 85379; 87086; 93005; 99285; C9113; J1644; J2270; J2405

== ENCOUNTER 2020-03-22 02:39 | Emergency (ER) | payer MEDICARE, OTHER ==
[~2020-03-22] VITALS: Ht 160 cm; Wt 90.9 kg
[~2020-03-22 02:39] MED LIST changes: +ACET-2247 PO; -ALLO100T PO; -AMLO5TAB66 PO; -ASPI-1182 PO; -CLOP75 PO; +DSS100 PO; +INSU100V SQ; -LEVO100T14 PO; +LEVO50 PO; -LOSA50TA25 PO; +LOSA50TA37 PO; -METF-960 PO; +PANT-31 PO; -PIOG15TA6 PO; -ROSU10 PO; -TRAZ-219 PO; +TRAZ-252 PO; -TRIA1TAB93 PO; -VALS80TA2 PO
[2020-03-22] MEDS ORDERED: LIDOCAINE 5% TRANSDERMAL PATCH TD ONE (03:00)
[2020-03-22] MEDS ORDERED: HALO10 PO (03:05)
[2020-03-22] MEDS ORDERED: GABA-1181 PO (03:05)
[2020-03-22] MEDS ORDERED: CARV25 PO (03:05)
[2020-03-22] MEDS ORDERED: APIX5TAB PO (03:05)
[2020-03-22] MEDS ORDERED: METF-961 PO (03:05)
[2020-03-22] MEDS ORDERED: CARB-101 PO (03:05)
[2020-03-22 05:13] VITALS: BP 154/95
== END 2020-03-22 06:05 | disposition home or self-care (01) ==
LOC: EMS 02:39
DX: M54.6 Pain in thoracic spine (principal); E11.9 Type 2 diabetes mellitus without complications; I10 Essential (primary) hypertension; F20.9 Schizophrenia, unspecified; E78.00 Pure hypercholesterolemia, unspecified; F41.9 Anxiety disorder, unspecified; F32.9 Major depressive disorder, single episode, unspecified; Z90.710 Acquired absence of both cervix and uterus; Z88.5 Allergy status to narcotic agent; Z88.0 Allergy status to penicillin; Z88.8 Allergy status to other drugs, medicaments and biological substances; Z91.018 Allergy to other foods
CPT/HCPCS: 72072; Z7502; Z7610

== ENCOUNTER 2021-07-12 09:48 | Emergency (ER) | payer MEDICARE, OTHER ==
[~2021-07-12] VITALS: Ht 165.1 cm; Wt 109.1 kg
[~2021-07-12 09:48] MED LIST changes: +APIX5TAB PO; +CARB-314 PO; +CARV25 PO; -DSS100 PO; +GABA-1181 PO; +HALO10 PO; -INSU100V SQ; +METF-1185 PO
[2021-07-12 10:25] LABS: BASOPHILS % (AUTO) 1.3 % (0.0-2.0); EOSINOPHILS % (AUTO) 1.9 % (1.0-6.0); HEMATOCRIT 38.4 % (36-46); HEMOGLOBIN 12.2 g/dL (12.0-16.0); LYMPHOCYTES # (AUTO) 1.9 K/uL (1.0-4.8); LYMPHOCYTES % (AUTO) 23.9 % (22.0-44.0); MEAN CORPUSCULAR HEMOGLOBIN 27.7 pg (26.0-34.0); MEAN CORPUSCULAR HGB CONC 31.6 G/dL (31.0-37.0); MEAN CORPUSCULAR VOLUME 87 fL (80-100); MONOCYTES # (AUTO) 0.7 K/uL (0.1-1.0); MONOCYTES % (AUTO) 8.3 % (2.0-9.0); NEUTROPHILS # (AUTO) 5.1 K/uL (1.8-7.7); NEUTROPHILS % (AUTO) 64.6 % (40.0-70.0); PLATELET COUNT (AUTO) 310 K/uL (150-450); RED CELL DISTRIBUTION WIDTH 15.2 % (11.5-14.5)
[2021-07-12 10:35] LABS: ANION GAP 11 mmol/L (8-16); CALCIUM, TOTAL 8.4 mg/dL (8.8-10.5); CARBON DIOXIDE 27 mmol/L (22-29); CHLORIDE 105 mmol/L (98-107); CREATININE 1.11 mg/dL (0.60-1.30); GLOMERULAR FILTR. RATE CALC 59 mL/min (>60); GLUCOSE,RANDOM 195 mg/dL (70-110); SODIUM SERUM 143 mmol/L (136-145); UREA NITROGEN, BLOOD 15 mg/dL (7-18)
[2021-07-12 10:52] LABS: SALICYLATE < 2.8 mg/dL (2.8-20.0)
[2021-07-12 10:54] LABS: ALANINE AMINOTRANSFERASE 63 U/L (12-78); ALBUMIN 3.7 g/dL (3.4-5.0); ALKALINE PHOSPHATASE 102 U/L (46-116); ASPARTATE AMINOTRANSFERASE 33 U/L (15-37); BILIRUBIN,TOTAL 0.5 mg/dL (0.1-1.0); THYROID STIMULATING HORMONE 5.39 uIU/mL (0.36-3.74); TOTAL PROTEIN, SERUM 7.2 g/dL (6.4-8.2)
[2021-07-12 10:55] LABS: ACETAMINOPHEN < 2 mcg/mL (10-30)
[2021-07-12 11:21] LABS: APPEARANCE,URINE CLEAR (CLEAR); BILIRUBIN,URINE NEGATIVE (NEGATIVE); GLUCOSE, URINE (UA) NEGATIVE (NEGATIVE); KETONES,URINE NEGATIVE (NEGATIVE); LEUKOCYTE ESTERASE ,URINE NEGATIVE (NEGATIVE); NITRATE,URINE NEGATIVE (NEGATIVE); OCCULT BLOOD,URINE NEGATIVE (NEGATIVE); PROTEIN,URINE NEGATIVE (NEGATIVE); UROBILINOGEN,URINE 0.2 mg/dL (<=1.0)
[2021-07-12 11:27] LABS: BACTERIA,URINE None Seen /HPF (None Seen); RBC,URINE None Seen /HPF (0-2); SQUAMOUS EPITHELIAL CELL,UR Few /LPF (None Seen); WBC,URINE 0-2 /HPF (0-5)
[2021-07-12 11:35] LABS: AMPHET/METH SCREEN,URINE NEGATIVE (NEGATIVE); BARBITURATE SCREEN, URINE NEGATIVE (NEGATIVE); BENZODIAZEPINES SCREEN,URINE NEGATIVE (NEGATIVE); CANNABINOID SCREEN,URINE NEGATIVE (NEGATIVE); COCAINE SCREEN,URINE NEGATIVE (NEGATIVE); METHADONE SCREEN, URINE NEGATIVE (NEGATIVE); OPIATE SCREEN,URINE NEGATIVE (NEGATIVE); PHENCYCLIDINE SCREEN,URINE NEGATIVE (NEGATIVE)
[2021-07-12 11:37] LABS: COVID AG,FIA SOURCE NASOPHARYNGEAL
[2021-07-12] MEDS ORDERED: APIXABAN 5 MG TABLET PO ONE (12:00)
[2021-07-12] MEDS ORDERED: HALOPERIDOL 1 MG TABLET PO ONE (12:00)
[2021-07-12 12:42] LABS: INFLUENZA TYPE A NEGATIVE FOR TYPE A (NEGATIVE); INFLUENZA TYPE B NEGATIVE FOR TYPE B (NEGATIVE)
[2021-07-12] MEDS: LORazepam 1 MG TABLET PO ONE ×2 (13:08→13:11)
[2021-07-12] MEDS ORDERED: ZOLPIDEM TARTRATE 10 MG TABLET PO PRN (23:30)
[2021-07-12] MEDS ORDERED: LORazepam 1 MG TABLET PO PRN (23:30)
[2021-07-13 07:15] VITALS: BP 141/71
== END 2021-07-13 08:53 ==
LOC: EMS 09:55
DX: F69 Unspecified disorder of adult personality and behavior (principal); F32.A Depression, unspecified; I10 Essential (primary) hypertension; E78.00 Pure hypercholesterolemia, unspecified; F20.9 Schizophrenia, unspecified; Z20.822 Contact with and (suspected) exposure to COVID-19
CPT/HCPCS: 80053; 80307; 81001; 84439; 84443; 85025; 87426; 87804; 99285; G0480 ×2; G0481